=== PATIENT | male | born 1960 | race Caucasian/White ===

== ENCOUNTER 2016-11-14 11:15 | Emergency (ER) | payer OTHER ==
--- NOTE | 2016-11-14 16:37 | ER ---
ADMIT: 11/14/2016 RM/LOC: ER [facility] MR#: [id number] [address] [id number] MARY KAY VILLALOBOS [address] [place] [address] Emergency Room Report SEX: M AGE: 56 : 1960 DATE: 11/14/2016 CHIEF COMPLAINT: Injury to right hand. HISTORY OF PRESENT ILLNESS: A 56-year-old male who presents after sustaining an injury to his hand while working on a trailer. States he was using a screwdriver to loosen electrical box when he slipped, put the screwdriver through his right 4th digit and into his hand. States he removed the screwdriver from his finger, does not believe he hit the bone as it passed easily through. Rates his pain as 1/10. Describes it as throbbing. No other injuries. Otherwise, feels well today. Does states his last tetanus was in 2010. He primarily presents today as he thinks this needs to be updated. COURSE IN THE EMERGENCY ROOM: The patient was seen and examined. GENERAL: Afebrile, nontoxic, no acute distress. He is alert. EXTREMITIES: Hand, he does have a wound pattern on the right 4th digit consistent with a through and through wound passing through the anterior aspect of the distal 4th finger. No pain with movement. The tendon function is intact. Strength is equal compared bilaterally. No nail injury. Hand also has evidence of small puncture wound in the hypothenar eminence. No tenderness. Not actively bleeding. Uninjured above the wrist. Neurovascular, he has good cap refill. I did get a routine x-rays of the 4th digit. No signs of any retained foreign body or fractures. He was updated on his tetanus today. IMPRESSION: Puncture wound, right 4th digit, right hand. DISPOSITION: The patient will be started on Augmentin 500 one tab p.o. b.i.d. for 5 days. He is to keep the wound clean and dry. Wash daily with warm soapy water. Keep it covered. Follow up with his primary care with any concerns of infection or as needed. Continue home medications. Return with any worsening signs or symptoms. Questions sought and answered to best of my ability and the patient's satisfaction. Discharged in stable condition. JOSEFINA Riggs / Aravind Cadena MD / seferinol JOB #: [id number] CC: Aravind Cadena MD, Attending Physician Vahid Manjarrez MD, Family Physician
== END 2016-11-14 12:20 | disposition home or self-care (01) ==
LOC: ER 11:15
DX: S61.234A Puncture wound without foreign body of right ring finger without damage to nail, initial encounter (principal); E78.5 Hyperlipidemia, unspecified; F17.210 Nicotine dependence, cigarettes, uncomplicated; Z79.899 Other long term (current) drug therapy; W27.8XXA Contact with other nonpowered hand tool, initial encounter; Z23 Encounter for immunization